=== PATIENT | female | born 1990 ===

== ENCOUNTER 2017-06-23 11:17 | Emergency (ER) | payer OTHER ==
[~2017-06-23] VITALS: Ht 149.9 cm; Wt 56.7 kg
[2017-06-23 11:27] VITALS: Ht 149.9 cm; Wt 56.7 kg
[2017-06-23 14:27] VITALS: BP 118/68
== END 2017-06-23 14:27 | disposition home or self-care (01) ==
LOC: ED 11:17
DX: S01.01XA Laceration without foreign body of scalp, initial encounter (principal); W20.8XXA Other cause of strike by thrown, projected or falling object, initial encounter; Y93.89 Activity, other specified; Y92.89 Other specified places as the place of occurrence of the external cause; Y99.8 Other external cause status
CPT/HCPCS: J2001